=== PATIENT | male | born 1970 | race Caucasian/White ===

== ENCOUNTER → 2017-06-22 | Outpatient (CLI) | payer OTHER ==
[~2017-06-22] MED LIST: ALBU1AER9 INH; ENAL10TA9 PO; IBUP-103 PO; LPT40 PO
--- NOTE | 2017-06-23 06:14 | SPLIT NIGHT TECHNICIAN REPORT ---
[facility] Split Night Polysomnogram - Leather Goods Maker Report Study date: 06/22/2017 Referring Physician: Dr. Megha Marin M.D. Name: BRADEN CHÁVEZ Leather Goods Maker: ERICK Doyle. Date of : 1970 Height: 47 years, Height 5' 9" Sex: Male Weight: 283 lbs Age: 47 Neck Circum: 17.75inches BMI: Medications: 41.79 Pro Air HFA 108mcg/act, Enalappll-HCTZ 10-25mg, Ranitidine 75mg Patient History Study started on room air with no ETCO2 monitoring in room #8. 47 yr old male here tonight for a diagnostic psg. He complains of fatigue, snoring and witnessed apnea. He was diagnosed with mild KATY in 2007 and wears a mouth guard. He sometimes forgets to put it in. Tonight, he is not using the mouth His ESS=6/24. Neck circ=17.75inches Parameters Monitored NPSG: E1-M2, E2-M1, Fp1-M2, Fp2-M1, F3-M2, F4-M2, F4-M1, C3-M2, C4-M2, C4-M1, O1-M2, O2-M2, O2-M1, T3-M2, T4-M1, P3-M2, P4-M1, CHIN1, CHIN2, HR, EKG, Legs, PFLOW, SNOR, FLOW, CFLOW, Tidal Volume, THOR, ABDO, SpO2, PLTH, CPRESS, ETCO2 Wave, ETCO2, pH SLEEP SUMMARY DATA DIAGNOSTIC TREATMENT Lights Out: 9:34:21 PM 12:11:51 AM Lights On: 12:00:21 AM 5:26:21 AM Total Recording Time (TRT): 146.0 min. 314.5 min. Total Sleep Time (TST): 61.0 min. 282.0 min. NREM Time: 61.0 min. 185.5 min. REM Time: 0.0 min. 96.5 min. Sleep Period Time (SPT): 88.5 min. 306.0 min. Sleep Efficiency (SE): 42 % 90 % Sleep Latency: 51.0 min. 8.0 min. Arousal Index: 53.1 4.9 PAP Treatment Levels: 4, 5, 6, 7, 8, 9 * Optimal Pressure(s) SLEEP STAGING DATA DIAGNOSTIC TREATMENT Duration (min) TST % Duration (min) TST % Stage Wake: 85.0 min. -- 32.5 min. -- WASO: 34.0 min. -- 24.0 min. -- NREM: 61.0 min. 100 % 185.5 min. 66 % Stage N1: 21.5 min. 35 % 16.0 min. 6 % Stage N2: 39.5 min. 65 % 113.0 min. 40 % Stage N3: 0.0 min. 0 % 56.5 min. 20 % REM: 0.0 min. 0 % 96.5 min. 34 % POSITIONAL DATA Event Count Index Event Count Index Supine: 0 0 2 26.7 Supine NREM: 0 0.0 2 26.7 Supine REM: N/A N/A N/A N/A Non-Supine: 61 60.3 10 2.2 Non-Supine NREM: 61 60.3 2 0.7 Non-Supine REM: N/A N/A 8 5.0 AROUSAL SUMMARY DATA: Event Count Index Event Count Index Apnea Arousals: 23 34.4 1 0.4 Hypopnea Arousals: 10 9.8 3 0.6 Snore Arousals: 3 3.0 4 0.9 PLM Arousals: 11 10.8 4 0.9 Non-Specific Arousals: 4 3.9 3 0.6 Total Arousals: 54 53.1 23 4.9 MYOCLONUS (PLM) Event Count Index Event Count Index PLM: 59 58.0 30 6.4 PLM AROUSAL: 11 10.8 4 0.9 PLM W/O AROUSAL 59 58.0 26 5.5 PLM W/RESP EVENT 15 0.0 1 0.0 MYOCLONUS (PLM) Event Count Index Event Count Index LM: 4 57.0 42 8.9 LM AROUSAL: 4 3.9 7 1.5 LM W/O AROUSAL LM W/RESP EVENT LM NON SPECIFIC 54 53.1 59 12.6 HEART RATE DATA DIAGNOSTIC TREATMENT Sleep (bpm): 72 68 REM (bpm): N/A 89 NREM (bpm): 92 90 Tachycardia Count: 0 0 Tachycardia Duration: 0.00 0 Bradycardia Count: 0 0 Bradycardia Duration: 0.00 0 DIAGNOSTIC PORTION TREATMENT PORTION RESPIRATORY DATA Event Count Index Event Count Index AHI: -- 60.0 -- 2.6 RDI: -- 60.0 -- 3 Obstructive Apnea: 33 32.5 2 0.4 Central Apnea: 2 2.0 0 0.0 Mixed Apnea: 0 0.0 0 0.0 Hypopnea: 26 25.6 10 2.1 RERA: 0 0.0 0 0.0 Total Apneas: 35 34.4 2 0.4 RESPIRATORY DATA REM NREM SLEEP REM NREM SLEEP Supine Position: Obstructive Apneas: N/A 0 0 N/A 0 0 Central Apneas: N/A 0 0 N/A 0 0 Mixed Apneas: N/A 0 0 N/A 0 0 Hypopneas: N/A 0 0 N/A 2 2 RERA N/A 0 0 N/A 0 0 Total Supine Events: N/A 0 0 N/A 2 2 Supine AHI: N/A 0.0 0 N/A 26.7 26.7 Supine RDI: N/A 0.0 0.0 N/A 26.7 26.7 REM NREM SLEEP REM NREM SLEEP Non-Supine Position: Obstructive Apneas: N/A 33 33 2 0 2 Central Apneas: N/A 2 2 0 0 0 Mixed Apneas: N/A 0 0 0 0 0 Hypopneas: N/A 26 26 6 2 8 RERA N/A 0 0 0 0 0 Total Supine Events: N/A 61 61 8 2 10 Supine AHI: N/A 60.3 60.3 5.0 0.7 2.2 Supine RDI: N/A 60.3 60.3 5.0 0.7 2.2 OXYGEN DESTAURATION DATA: Event Count Index Event Count Index REM Desaturations: N/A N/A 14 8.7 NREM Desaturations: 67 65.9 9 2.9 SNORE DATA DIAGNOSTIC TREATMENT Snore Time: 10.6 12:19:51 AM Snore TST%: 8 8 Snore Arousal Count: 3 4 Snore Arousal Index: 3.0 0.9 Desaturation Event Summary: Minimum %SpO2 Event Count Mean/Min/Max Duration(sec.) Desaturation Index % Time In Bed > 90 94 24.1 / 4.0 / 58.8 32.3 38.8 86 - 90 38 24.4 / 8.8 / 60.0 8.6 58.8 81 - 85 3 14.2 / 4.0 / 29.0 16.9 2.4 76 - 80 0 N/A 0.0 0.1 71 - 75 0 N/A 0.0 0.0 66 - 70 0 N/A 0.0 0.0 61 - 65 0 N/A 0.0 0.0 56 - 60 0 N/A 0.0 0.0 51 - 55 0 N/A 0.0 0.0 < 50 0 N/A 0.0 0.0 OXYGEN SATURATION DATA DIAGNOSTIC TREATMENT SpO2 Mean Sleep: 92 % 90 % SpO2 Mean REM: N/A % 89 % SpO2 Mean NREM: 92 % 90 % SpO2 Minimum Sleep: 79 % 78 % SpO2 Minimum REM: N/A % 78 % SpO2 Minimum NREM: 79 % 84 % Time Below 90% (TST): 10.2 117.4 Time Below 88% (TST): 4.2 35.2 Total REM NREM Awake <50% 0.0 min. 0.0 min. 0.0 min. 0.0 min. 51 - 60% 0.0 min. 0.0 min. 0.0 min. 0.0 min. 61 - 70% 0.0 min. 0.0 min. 0.0 min. 0.0 min. 71 - 80% 0.4 min. 0.3 min. 0.1 min. 0.1 min. 81 - 90% 275.2 min. 63.4 min. 132.5 min. 79.3 min. 91 - 100% 174.7 min. 32.6 min. 111.9 min. 30.2 min. Average 90 89 90 89 Minimum SpO2 78 78 79 78 Desaturation Event Index 15.8 8.7 18.5 15.8 # Desat. Events below 89% 64 12 35 17 Time(%) with Saturation below 89% 28.9 7.4 8.0 13.5 Time(min.) with Saturation below 89% 130.4 33.5 36.2 60.6 Recording Leather Goods Maker Comments: Mr. Chávez slept in the right, left and supine positions. No cardiac arrhythmia noted. PLM's were noted. No bruxism noted. Snoring was noted and scored as a 4 on a scale of 1 through 5. (0=no snoring, 5=snoring loud enough to be heard through a closed door or down the [address] way) At 12:12am he had met specific Split-Night criteria during the diagnostic portion of this study. CPAP was initiated at +4 CMH2O and up-titrated to a level of +9CMH2O. A wide Mirage FX nasal mask by [employer] was used during titration. He awoke to use the restroom 1 time during the night. He stated that he slept better than when at home. The final report will be interpreted and signed by a sleep physician. The completed physician report will then be placed in the patient medical record. Therapy Event: Therapy (cm H20) 0 4 5 6 7 8 9 Total Time at Pressure (min.) 146.0 16.3 13.2 38.3 16.6 58.1 172.1 TST at Pressure (min.) 61.0 5.5 6.5 38.3 14.1 58.1 159.6 # Periods 1 1 1 1 1 1 1 Sleep Onset (min.) 51.0 8.0 2.2 0.0 0.0 0.0 0.0 REM Onset (min.) N/A N/A N/A 7.0 0.0 N/A 1.1 Sleep Efficiency % 41 33 49 100 84 100 92 Wakefulness (%) 58.2 66.3 50.6 0.0 15.1 0.0 7.3 Wakefulness (min.) 85.0 10.8 6.7 0.0 2.5 0.0 12.5 NREM 1 (%) 14.7 21.5 30.3 0.0 21.1 0.0 2.9 NREM 1 (min.) 21.5 3.5 4.0 0.0 3.5 0.0 5.0 NREM 2 (%) 27.1 12.3 19.1 18.3 26.2 45.8 41.0 NREM 2 (min.) 39.5 2.0 2.5 7.0 4.4 26.6 70.6 NREM 3 (%) 0.0 0.0 0.0 0.0 0.0 54.2 14.5 NREM 3 (min.) 0.0 0.0 0.0 0.0 0.0 31.5 25.0 REM (%) 0.0 0.0 0.0 81.7 37.6 0.0 34.3 REM (min.) 0.0 0.0 0.0 31.3 6.2 0.0 59.0 # Arousals 54 3 5 1 3 2 9 Arousal Index 53.1 32.7 46.0 1.6 12.8 2.1 3.4 # Snore 345 51 53 290 80 152 12 Snore Index 339.3 556.4 488.1 454.8 341.0 157.0 4.5 AHI 60.0 0.0 9.2 6.3 8.5 0.0 1.9 AHI Supine 0.0 N/A N/A N/A 30.0 N/A 0.0 AHI Non-Supine 60.3 0.0 9.2 6.3 0.0 0.0 1.9 NREM AHI 60.0 0.0 9.2 8.6 15.3 0.0 0.0 REM AHI N/A N/A N/A 5.8 0.0 N/A 5.1 RDI 60.0 0.0 9.2 6.3 8.5 0.0 1.9 # Obstructive 33 0 0 0 0 0 2 # Central Ap 2 0 0 0 0 0 0 # Mixed 0 0 0 0 0 0 0 # Hypopneas 26 0 1 4 2 0 3 RERAS 0 0 0 0 0 0 0 Total Respiratory Events 61 0 1 4 2 0 5 Time Below SpO2 89.00% (min.) 6.8 5.0 5.2 31.8 8.8 6.0 6.0 Mean NREM SpO2 (%) 92 87 88 88 88 89 91 Mean REM SpO2 (%) N/A N/A N/A 87 88 N/A 91 Mean Sleep SpO2 (%) 92 87 88 87 88 89 91 Min NREM SpO2 (%) 79 84 85 85 86 87 86 Min REM SpO2 (%) N/A N/A N/A 78 86 N/A 85 Position Supine (min.) 0.3 0.0 0.0 0.0 4.0 0.0 0.5 Position Non-supine (min.) 60.7 5.5 6.5 38.3 10.1 58.1 159.1 LM Index Sleep 115.1 21.8 55.3 9.4 12.8 16.5 14.7 LM Index NREM 115.1 21.8 55.3 34.4 15.3 16.5 13.1 LM Index REM N/A N/A N/A 3.8 9.6 N/A 17.3 Mean Heart Rate (bpm) 72 70 68 71 69 68 68 Min Heart Rate (bpm) 60 65 63 60 62 51 54
--- NOTE | 2017-06-23 15:05 | POLYSOMNOGRAPH REPORT ---
CLINICAL DATA: A 47-year-old male with a BMI of 41.8, referred by Dr. Marin. He had a previous history of sleep apnea which was mild, diagnosed in 2007. He wears an oral appliance. He did not wear it on the night of the study. He is referred for a diagnostic sleep study. This was a split night study. SLEEP ARCHITECTURE: For the diagnostic portion of the study, sleep period time was 88.5 minutes. Total sleep time was 61 minutes, all non-REM sleep. Sleep efficiency was 42%. Sleep latency was 51 minutes. Sleep consisted of stage N1 35 and stage N2 65%. For the treatment portion of the study, sleep period time was 306 minutes. Total sleep time was 282 minutes divided between 185.5 minutes of non-REM sleep and 96.5 minutes of REM sleep. Sleep latency was 8 minutes. Sleep efficiency was 90%. Sleep consisted of stage N1 6, stage N2 40%, stage N3 20%, and REM 34%. AROUSAL DATA: Prior to treatment, 54 arousals were recorded for an index of 53.1 per hour. During treatment, 23 arousals were recorded for an index of 4.9 per hour. PERIODIC LIMB MOVEMENT DATA: Prior to treatment, 59 limb movements during sleep were noted for an index of 58 per hour. During treatment, 59 limb movements during sleep were noted for an index of 12.6 per hour. ECHOCARDIOGRAM: Heart rates ranged from 60-92 beats per minute. No arrhythmias were noted. RESPIRATORY DATA: Severe sleep apnea was documented prior to treatment. The diagnostic AHI was 60. There were 33 obstructive and 2 central apneic episodes. There were 26 hypopneic episodes. The AHI with treatment was 2.6. There were 2 obstructive apneic episodes and 10 hypopneic episodes. OXIMETRY DATA: Nocturnal hypoxemia was seen prior to treatment. Oxygen jemma was 79% during non-REM sleep prior to treatment. Mean saturation with treatment was 90%. LEAF FAT SCRAPER'S COMMENTS AND TREATMENT SUMMARY: The patient slept in the right, left, and supine position. Snoring was severe, rated 4 on a scale of 1-5. At 12:12 a.m., he met split night criteria. He used a Mirage FX nasal mask [employer] wide. CPAP was titrated up to 9 cm water pressure. At this final pressure setting, the patient slept for 159.6 minutes with an AHI of 1.9 and resolution of his hypoxemia. IMPRESSION: Very severe sleep apnea/hypopnea with a diagnostic apnea/hypopnea index of 60 with nocturnal hypoxemia, corrected with CPAP 9 cm of water pressure, wide Mirage FX nasal mask by [employer]. RECOMMENDATIONS: The patient should be started on the above noted treatment regimen and seen back in followup within 90 days to document efficacy and compliance. [id number]
== END | disposition home or self-care (01) ==
LOC: C.NEUR 20:00
PROVIDERS: ATTEND Internal Medicine
DX: G47.33 Obstructive sleep apnea (adult) (pediatric) (principal)